=== PATIENT | male | born 1965 | race Caucasian/White ===

== ENCOUNTER → 2021-07-04 | Outpatient (CLI) | payer OTHER ==
--- NOTE | 2021-07-04 16:40 | CARDNUC ---
[place] [address] CARDIAC NUCLEAR IMAGING REPORT Name: JORGE DONG Room: [facility]#: [id number] Admission: 07/04/21 Attend Phys: MiteshHudson Holliday, Discharge: Date of : 61 Date of Service: 07/04/21 1639 Report #: [id number] THIS REPORT FOR: cc: Prasanth Rivera MD, Matthew W. MD Liston, Michael J. MD [facility] ~ APPROVED REPORT Imaging Protocol: Rest Tc-99m/Stress Tc-99m 1 day Study performed: 07/04/2021 09:30:00 Indication: Abnormal CT calcium score, FHX CAD. Patient Location: Out-Patient Stress Tech: LOIDA SIBLEY Stress Nurse: Marisa Ruiz RN NM Tech:JANICE Lau Ht: 5 ft 10 in Wt: 180 lbs BSA: 2.00 m2 BMI: 25.82 Medical History Medical History: Abnormal CT Calcium score, strong FHX CAD. Medications: Crestor, ASA 81 Mg Allergies: No known drug allergies Cardiac Risk Factors: Age, FHX of CAD, ABN CT calcium score. Previous Cardiac Procedures: None Pretest Chest Pain Characteristics: No chest pain Exercise History: Physically active Physical Disabilities: None noted Meds Held (24 hrs): None Resting Data Rest SPECT myocardial perfusion imaging was performed in supine position 30 minutes following the intravenous injection of 11.2 mCi of Tc-99m Sestamibi. Time of rest injection: 0950 Date: 07/04/2021 The images were gated to evaluate regional wall motion and calculate left ventricular ejection fraction. Administration Route: IV Administration Site: Left Hand Exercise Stress At peak stress, the patient was injected intravenously with 35.5m[place] [address] CARDIAC NUCLEAR IMAGING REPORT Name: MADDIEDwaineJCY Room: [facility]#: [id number] Admission: 07/04/21 Attend Phys: lEiana Holliday, Discharge: Date of : 61 Date of Service: 07/04/21 1639 Report #: [id number] of Tc-99m Sestamibi. Time of stress injection: 1100 Date: 07/04/2021 Administration Route: IV Administration Site: Left Hand Gated Stress SPECT was performed 30 minutes after stress injection. The images were gated to evaluate regional wall motion and calculate left ventricular ejection fraction. Prone imaging was performed. Stress Test Details Stress Test: Exercise stress testing was performed using a Toy protocol. HR Max Heart Rate (APMHR): 163 bpm Resting HR: 64 bpm Target HR (85% APMHR): 138 bpm Max HR Achieved: 188 bpm % of APMHR: 115 Recovery HR: 102 bpm BP Resting BP: 121/93 mmHg Max BP: 180/85 mmHg Recovery BP: 126/81 mmHg ECG Resting ECG: Sinus Rhythm Stress ECG: Sinus Tachycardia ST Change: None Arrhythmia: None Recovery ECG: Sinus Rhythm Recovery ST Change: None Recovery Arrhythmia: None Clinical Reason for Termination: Completed protocol, Maximal effort, Patient Request Stress Symptoms: Dyspnea Exercise duration: 10 min 20 sec Exercise capacity: 12.37 METs The patient tolerated standard Toy protocol exercise without significant cardiac symptoms. Nurse Comments Patient tolerated a treadmill Nuclear Stress test to stage 4, target HR surpassed. Patient was stable and stated he felt good when escorted to Nuclear Medicine for imaging[place] [address] CARDIAC NUCLEAR IMAGING REPORT Name: JORGE DONG Room: [facility]#: [id number] Admission: 07/04/21 Attend Phys: Eliana Holliday, Discharge: Date of : 61 Date of Service: 07/04/21 1639 Report #: [id number] normal to superior. Stress ECG Conclusion The baseline twelve-lead EKG shows sinus rhythm without significant ST segment or T wave abnormality. EKGs obtained during and post exercise show sinus rhythm and sinus tachycardia with no significant ST segment or T wave changes when compared to baseline. There were no stress-induced arrhythmias. Study Quality Study: Good Artifact: No artifact Study Data At rest, the left ventricular ejection fraction was 54%.. Post stress, the left ventricular ejection was 66%.. TID = 0.75. Perfusion Perfusion images show a moderate sized mild to moderate intensity reversible defect involving the basal to distal inferior wall. No other significant fixed or reversible defects are identified. Wall Motion Normal left ventricular wall motion. Nuclear Conclusion ECG Findings: negative for ischemia Clinical Findings: negative for ischemia Nuclear Findings: positive for ischemia Exercise Capacity: normal Left Ventricular Function: normal Risk Study: moderate Perfusion images suggest stress-induced ischemia of the inferior wall. Global LV systolic function is normal. This is a moderate risk study. <Conclusion> The baseline twelve-lead EKG shows sinus rhythm without significant ST segment or T wave abnormality. EKGs obtained during and post exercise show sinus rhythm and sinus tachycardia with [place] [address] CARDIAC NUCLEAR IMAGING REPORT Name: JORGE DONG Room: [facility]#: [id number] Admission: 07/04/21 Attend Phys: Eliana Holliday, Discharge: Date of : 61 Date of Service: 07/04/211638 Report #: [id number] segment or T wave changes when compared to baseline. There were no stress-induced arrhythmias. <ELECTRONICALLY SIGNED> By: Kam Manuel MD, [facility] 07/04/21 1639 38 [phone] Kam Manuel MD, FACC /INF
== END ==
LOC: M.NUC 06-20 16:37
PROVIDERS: ATTEND Internal Medicine
DX: R93.1 Abnormal findings on diagnostic imaging of heart and coronary circulation (principal)

== ENCOUNTER → 2021-07-24 | Outpatient (CLI) | payer OTHER ==
[~2021-07-24] VITALS: Ht 177.8 cm; Wt 81.6 kg
[~2021-07-24] MED LIST: CRESTOR5 MG PO
[2021-07-24 08:16] VITALS: BP 138/86
[2021-07-24 08:41] LABS: HEMATOCRIT 46.6 % (42.0-52.0); MCH 29.1 pg (26.0-34.0); MCHC 34.3 g/dL (28.0-37.0); RBC 5.48 mil/uL (4.50-6.00); RDW-CV 14.1 % (10.5-14.5); WBC 6.6 thou/uL (4.0-11.0)
[2021-07-24 08:42] LABS: MPV 7.6 fl. (7.2-11.1)
[2021-07-24 08:49] LABS: APTT 32.1 Seconds (25.0-31.3); INR 1.1; PROTIME 11.5 Seconds (9.20-11.50)
[2021-07-24 09:35] VITALS: BP 105/76
--- NOTE | 2021-07-24 09:39 | EKG ---
[place] [address] ELECTROCARDIOGRAM REPORT Name: JORGE DONG Room: [facility]#: [id number] Admission: 07/24/21 Attend Phys: Real Gaona MD Discharge: Date of : 61 Date of Service: 07/24/21829 Report #: [id number] THIS REPORT FOR: //name// [facility] Test Date: 2021-07-24 Test Time: 08:30:15 Pat Name: JORGE DONG Department: Room: Gender: Stereo Equipment Installer: : 1965 Requested By: Real Gaona Order Number: [id number] Reading MD: Real Gaona Measurements Intervals [place] Rate: 74 P: 40 NV: 155 QRS: -11 QRSD: 98 T: 28 QT: 383 QTc: 425 Interpretive Statements Sinus rhythm Minimal ST elevation, lateral leads Baseline wander in lead(s) V1 No previous ECG available for comparison Electronically Signed On 07-24-2021 9:39:43 ENDBANDER by Real Gaona [email or web address] <ELECTRONICALLY SIGNED> By: Real Gaona MD, [facility] 07/24/21 0939 9 9 Real Gaona MD, [facility] /EPI
[2021-07-24 09:45] VITALS: BP 102/66
[2021-07-24 10:01] LABS: ALBUMIN 4.1 g/dL (3.4-5.0); ALKALINE PHOSPHATASE 59 U/L (46-116); ANION GAP 9 mmol/L (7-16); BUN 15 mg/dL (7-18); CALCIUM 8.7 mg/dL (8.5-10.1); CHLORIDE 104 mmol/L (98-107); CHOLESTEROL 129 mg/dL (<200); CO2 28 mmol/L (21-32); CREATININE 1.2 mg/dL (0.6-1.3); GLUCOSE 102 mg/dL (70-99); HDL CHOLESTEROL 71 mg/dL (>40); LDL CHOLESTEROL 48 mg/dL (<100); POTASSIUM 3.8 mmol/L (3.5-5.1); SGOT 26 U/L (15-37); SGPT 47 U/L (30-65); SODIUM 141 mmol/L (136-145); TC:HDL 1.8 Ratio (Not establshd); TOTAL BILIRUBIN 1.2 mg/dL (<0.1-1.0); TOTAL PROTEIN 8.1 g/dL (6.4-8.2); TRIGLYCERIDE 52 mg/dL (<150); VLDL 10 mg/dL (<40)
[2021-07-24 10:22] LABS: SERUM ASSESSMENT Clear
--- NOTE | 2021-07-24 14:38 | CARD ---
[address] [address] CARDIAC CATH REPORT Name: JORGE DONG Room: [facility] Granados.#: [id number] Admission: 07/24/21 Attend Phys: Real Gaona MD, F Discharge: Date of : 61 Report #: [id number] THIS REPORT FOR: cc: Prasanth Rivera MD, Matthew W. MD Blick, David R. MD [facility] ~ APPROVED REPORT Study performed: 07/24/2021 08:25:21 Patient Details Patient Status: Out-Patient Room #: The patient is a 55 year-old male Event Personnel Real Gaona Shield Installer, Shena Arreguin RN RN, Susan Mckeon RTR Monitor, Jeff Levy BACKUP ENGINEER Scrub Procedures Performed Art Access - R radial artery Left Heart Cath w/or w/o Coronaries [facility] Hemostasis with Hemoband Indication Positive stress test Risk Factors Family History, Coronary Artery DiseaseHypertension Admission/Lab Medications/Medications given during procedure Heparin Unfract., Lidocaine Subcut 4 ml, Oxygen Nasal cannula 2 l per min, 0.9% Sodium Chloride IV 75 ml per hr, Nitroglycerin IA 400 mcg, Verapamil IA 5.0 mg, Heparin IV 4100 units Procedure Narrative The patient was brought electively to the Cardiac Catheterization Laboratory and was prepped and draped in a sterile manner. The right wrist was infiltrated with 2% Lidocaine subcutaneous anesthesia. IV conscious sedation was used throughout procedure with appropriate monitoring and was performed in the presence of a registered nurse who was an independent trained observer other than the physician performing the procedure. A Slender Glidesheath sheath was inserted into the right radial artery. Coronary angiography was performed using coronary diagnostic catheters. The right coronary system was accessed and visualized with a Diagnostic 6Fr JR 4 [place] [address] CARDIAC CATH REPORT Name: JORGE DONG Room: [facility]#: [id number] Admission: 07/24/21 Attend Phys: Real Gaona MD, F Discharge: Date of : 61 Report #: [id number] coronary system was accessed and visualized with a Diagnostic 6Fr JL 4 catheter. The left ventricle was accessed and visualized with a Diagnostic 6 Fr pigtail catheter. Left ventricular/Aortic Valve gradient assessed via catheter pullback. Left ventriculogram was performed in VILLARREAL projection. Closure device was deployed with a 6 Fr Vasc-Band Reg 24cm. The patient tolerated the procedure well and there were no complications associated with the procedure. There was no hematoma. Intraoperative Conscious Sedation Sedation start time: 857 Case end Time: 916 Fentanyl 25 mcg Versed 2 mg Fluoro Time: 2.7 minutes Dose: DAP 71519 cGycm2 494 mGy Contrast Type and Amount: Visipaque 100 mL Coronary Angiography The patient's coronary anatomy is left dominant. Diagnostic Cath Left Main 0% stenosis LAD ostial 30% stenosis and 30% mid stenosis before the second diagonal branch, and a 30% stenosis just distal to the second diagonal branch Circumflex 0% stenosis OM2 30% proximal stenosis Right Coronary 0% stenosis Left Ventriculography The left ventricle is normal in size with normal contractility. The left ventricular ejection fraction is estimated to be 60-65%. Left ventricular wall motion abnormalities are not present. There is no mitral insufficiency. Hemodynamics The aortic pressure is 74/49 mmHg with a mean of 61 mmHg. The left ventricular pressure is 92/6 mmHg with a mean of mmHg. The left ventricular end diastolic pressure is 8 mmHg. There was no gradient across the aortic valve upon pullback. Pullback from the left ventricle to the aorta revealed no gradient across [place] [address] CARDIAC CATH REPORT Name: JORGE DONG Room: [facility] Roberta#: [id number] Admission: 07/24/21 Attend Phys: Real Gaona MD, F Discharge: Date of : 61 Report #: [id number] 1. no significant CAD with a maximal stenosis of 30% in the proximal LAD and mid circumflex artery. 2. LVEF 60-65% 3. suspect false positive cardiolite stress test. Recommendations Aggressive Medical Therapy <ELECTRONICALLY SIGNED> By: Real Gaona MD, [facility] 07/24/21 1438 1438 [id number] Gaona MD, [facility] /INF
== END | disposition home or self-care (01) ==
LOC: M.CL 07:20
PROVIDERS: ATTEND Internal Medicine Cardiovascular Disease
DX: R94.39 Abnormal result of other cardiovascular function study (principal); I25.10 Atherosclerotic heart disease of native coronary artery without angina pectoris; I10 Essential (primary) hypertension; E78.00 Pure hypercholesterolemia, unspecified; Z98.890 Other specified postprocedural states; Z79.899 Other long term (current) drug therapy; Z20.822 Contact with and (suspected) exposure to COVID-19